=== PATIENT | male | born 1955 | race Caucasian/White ===

== ENCOUNTER 2020-08-23 10:28 | Outpatient (CLI) | payer OTHER, SELFPAY ==
--- NOTE | ~2020-08-23 | CT_ITS ---
EXAMINATION: CT abdomen pelvis wo con EXAM DATE: 08/23/2020 10:57 INDICATION: R low back pain, RLQ pain, hematuria. TECHNIQUE: Spiral CT of the abdomen and pelvis was performed without contrast. Axial, coronal and sag ittal images were reviewed. The dose-length product (DLP) for this examination was 1007.82 mGy-cm. The exposure was tailored according to patient size (auto mA exposure control), and iterative reconst ruction (ASIR) was used as additional dose reduction technique. There is no prior study for comparis on. FINDINGS: There is no nephrolithiasis or hydronephrosis. The prostate is unremarkable. The bladder is only mildly distended with diffuse wall thickening and some fat within the wall, could indicate h istory of chronic cystitis. The liver, spleen, adrenal glands and pancreas are unremarkable. Gallbl adder is unremarkable. No biliary obstruction. There is no retroperitoneal or pelvic lymphadenopath y. There is mild scattered arteriosclerotic disease. The appendix is normal. There is moderate scattered colonic diverticulosis. There is no adjacent inf lammatory change to suggest diverticulitis. The stomach and small bowel are unremarkable. There is expected amount of colonic stool. No free intraperitoneal gas. The heart is normal in size. Ther e are no pericardial or pleural effusions. The lung bases are unremarkable. There are no osteoblast ic or osteolytic lesions identified. IMPRESSION: 1. No nephrolithiasis, hydronephrosis or acute intra-abdominal findings. 2. Moderate colonic diverticulosis. 3. Possible chronic cystitis. Reviewed, dictated and finalized at location A.
== END 2020-08-23 10:29 ==
PROVIDERS: Visit Provider Physician Assistant
DX: R10.31 Right lower quadrant pain (principal); R31.9 Hematuria, unspecified; K57.30 Diverticulosis of large intestine without perforation or abscess without bleeding
CPT/HCPCS: 74176